=== PATIENT | male | born 1945 | race Caucasian/White ===

== ENCOUNTER 2018-01-16 07:53 | Day surgery (SDC) | payer MEDICARE ==
[~2018-01-16] VITALS: Ht 180.3 cm; Wt 82.1 kg
[~2018-01-16 07:53] MED LIST: ATORVASTATIN CA10 MG PO; METFORMIN1000 MG PO; MONOCYCLINE PO; OMEPRAZOLE20 M1 PO
[2018-01-16 10:16] VITALS: BP 97/61
== END 2018-01-16 09:55 | disposition home or self-care (01) ==
LOC: ENDO 07:53
PROVIDERS: ATTEND Surgery
PROC: 0DBL8ZX Excision of Transverse Colon, Via Natural or Artificial Opening Endoscopic, Diagnostic (ICD-10-PCS; principal; 2018-01-16)
DX: Z12.11 Encounter for screening for malignant neoplasm of colon (principal); D12.3 Benign neoplasm of transverse colon; K57.30 Diverticulosis of large intestine without perforation or abscess without bleeding; E11.9 Type 2 diabetes mellitus without complications